=== PATIENT | male | born 1950 | race Two or more races ===

== ENCOUNTER 2020-11-26 09:35 | Emergency (ER) | payer MEDICARE ==
[~2020-11-26] VITALS: Ht 175.3 cm; Wt 86.2 kg
[2020-11-26] VITALS (7 sets, daily range): BP systolic 113–123; BP diastolic 60–86
[2020-11-26] MEDS ORDERED: Bamlanivimab Fact Sheet MISC ONE (09:45)
[2020-11-26] MEDS ORDERED: Bamlanivimab 700 MG in NS 275 ML IVPB SCH (09:45)
--- NOTE | 2020-11-26 10:11 | NUR ---
ED Nurse Note: pt ambulated to room without difficulty and is here for the covid infusion. pt stated he was exposed to covid last week. had 2 covid tests that were neg then had 1st covid vaccination. c/o didn't "feel right" so he went and had another one. 3rd one was positive. no c/o sob, pain or fever, does have a small cough every now and then. pt placed on monitor, awaiting for medication from rx to be infused.
--- NOTE | 2020-11-26 10:17 | Emergency Room Report ---
History of Present Illness General Chief Complaint: Flu Like Symptoms Source: Patient, PMD Present Illness HPI Patient tested positive for Covid yesterday. Patient is here for monoclonal antibody infusion. The patient had tested -3 times in the past 2 weeks. 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 The patient denies shortness of breath or change in his cough. He has had some muscle aches that began yesterday which led him to be tested. Patient denies fevers or chills. There is no nausea, vomiting or diarrhea. He denies pain at this time. Patient has a long history of smoking. No sore throat, palpitations, dysuria, abdominal pain, joint pain, rashes, de pression, anxiety, visual changes, dizziness, headache. 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 Cruz Reviewed Nursing Documentation: PMH: Agreed; PSxH: Agreed Nursing Documentation-PMH Past Medical History: No History, Except For Hx Hypertension: Yes - high cholesterol Review of Systems All Other Systems: negative except mentioned in HPI Physical Exam Vital Signs Date Time Temp Pulse Resp B/P (MAP) Pulse Ox O2 Delivery O2 Flow Rate FiO2 11/26/20 09:41 99.0 89 18 123/72 (89) 96 Room Air Sp02 EP Interpretation: reviewed, normal General Appearance: well appearing, no apparent distress, GCS 15 Head: normocephalic Eyes: bilateral eye normal inspection, bilateral eye PERRL, bilateral eye EOMI ENT: other - Wearing a mask Neck: full range of motion, supple Respiratory: lungs clear, normal breath sounds Cardiovascular #1: regular rate, rhythm Cardiovascular #2: 2+ radial (L) Gastrointestinal: normal inspection Musculoskeletal: gait/station normal, no calf tenderness Neurologic: alert, grossly normal Psychiatric: mood/affect normal Skin: normal color, no rash, warm/dry Medical Decision Making Diagnostic Impression: Primary Impression: COVID-19 ER Course Patient here for monoclonal antibody infusion after testing positive for Covid yesterday. Patient denies any symptoms at this time. Patient has risk factors of smoking and age. Patient's oximetry is acceptable and not needing hospita lization. Patient will receive BAM. No laboratory or chest x-ray indicated. Patient received BAM infusion and tolerated it well. Patient observed for 1 hour afterwards. Discussed treatment plan with patient. Patient stable for outpatient observation and treatment. Last Vital Signs Date Time Temp Pulse Resp B/P (MAP) Pulse Ox O2 Delivery O2 Flow Rate FiO2 11/26/20 12:49 17 115/86 97 Room Air 11/26/20 11:31 99.0 11/26/20 10:08 89 Status: improved Disposition: HOME, SELF-CARE Condition: Improved Referrals: Lee Durham MD (PCP) Israel Salguero MD Nov 26, 2020 10:16
--- NOTE | 2020-11-26 11:17 | NUR ---
ED Nurse Note: started infusion, pt denies any allergies
--- NOTE | 2020-11-26 11:31 | NUR ---
ED Nurse Note: pt resting with eyes closed in no noted distress. pt stated that he feels good, no changes.
--- NOTE | 2020-11-26 11:53 | NUR ---
ED Nurse Note: pt resting with eyes closed in no noted distress, infusing continued
--- NOTE | 2020-11-26 12:20 | NUR ---
ED Nurse Note: pt completed infusion. he has had no side effects thus far. will monitor pt for the next hour.
--- NOTE | 2020-11-26 15:00 | NUR ---
ER DISCHARGE NOTE: Patient is cleared to be discharged per ERMD, pt is aox4, on room air, with stable vital signs. pt was given dc instructions, pt was able to verbalize understanding, pt id band and iv site removed without complications. pt is able to ambulate with steady gait. pt took all belongings.
== END 2020-11-26 14:50 | disposition home or self-care (01) ==
LOC: EMR 09:53
DX: U07.1 COVID-19 (principal); Z23 Encounter for immunization; F17.200 Nicotine dependence, unspecified, uncomplicated; E78.00 Pure hypercholesterolemia, unspecified
CPT/HCPCS: 96365; 99284; J7050; Q0239